=== PATIENT | female | born 1935 | race Caucasian/White ===

== ENCOUNTER → 2017-05-28 | Outpatient (CLI) | payer MEDICARE ==
--- NOTE | 2017-05-28 12:46 | US ---
EXAMINATION TYPE: US thyroid st tissue head/neck DATE OF EXAM: 05/28/2017 COMPARISON: US 2016 05/01/2016 CLINICAL HISTORY: Hypothyroidism E03.9. S/P total thyroidectomy 2008 with HX of remnant tissue per pr ior US. GLAND SIZE: Right Lobe: 1.7 x 0.8 x 0.5 cm possible remnant tissue Overall Parenchyma: homogenous Left Lobe: 1.1 x 0.5 x 0.3 cm possible remnant tissue Overall Parenchyma: homogeneous Isthmus Thickness: NA NODULES RIGHT: # of nodules measured on right: 0 LEFT: # of nodules measured on left: 0 ISTHMUS: # of nodules measured in the isthmus: 0 Bilateral neck scanned, no evidence of lymphadenopathy. IMPRESSION: 1. There may be residual thyroid tissue. Suspicious mass is not identified. Findings are stable from 2016
== END | disposition home or self-care (01) ==
LOC: RADUSWWP 11:38
PROVIDERS: ATTEND Internal Medicine
DX: E03.9 Hypothyroidism, unspecified (principal)
CPT/HCPCS: 76536

== ENCOUNTER → 2017-08-31 | Outpatient (CLI) | payer MEDICARE ==
--- NOTE | 2017-09-01 11:39 | MM ---
Reason for exam: screening (asymptomatic). Last mammogram was performed 1 year ago. History: Patient is postmenopausal and has history of other cancer at age 75. Family history of breast cancer in mother at age 60. Stereotactic core biopsy of the left breast, June 26, 2003. Benign core biopsy of the left breast. Took estrogen for 16 years beginning at age 47. Physical Findings: A clinical breast exam by your physician is recommended on an annual basis and results should be correlated with mammographic findings. MG 3D Screening Mammo W/Cad Bilateral CC and MLO view(s) were taken. Prior study comparison: August 28, 2016, bilateral MG 3d screening mammo w/cad. August 27, 2015, bilateral MG screening mammo w CAD. There are scattered fibroglandular densities. Finding: There are typically benign vascular, round, linear calcifications in both breasts. Previous mammotome biopsy in the left breast. There is no discrete abnormality. ASSESSMENT: Benign, BI-RAD 2 RECOMMENDATION: Routine screening mammogram of both breasts in 1 year.
== END | disposition home or self-care (01) ==
LOC: RADMAMWWP 09:33
PROVIDERS: ATTEND Internal Medicine
DX: Z12.31 Encounter for screening mammogram for malignant neoplasm of breast (principal)
CPT/HCPCS: 77063; G0202

== ENCOUNTER → 2018-04-14 | Outpatient (CLI) | payer MEDICARE ==
--- NOTE | 2018-04-14 13:57 | US ---
EXAMINATION TYPE: US thyroid st tissue head/neck DATE OF EXAM: 04/14/2018 COMPARISON: 05/28/2017 CLINICAL HISTORY: 82-year-old female E03.9 HYPOTHYROIDISM. Hx of thyroid cancer. Thyroidectomy in 18 11. TECHNIQUE: Multiple sonographic images of the thyroid gland are obtained. FINDINGS: GLAND SIZE: Right Lobe remnant: 1.3 x 0.5 x 0.7 cm Left Lobe remnant: 1.3 x 0.8 x 0.7 cm Isthmus Thickness: Surgically removed NODULES- No nodules or masses identified Bilateral neck scanned, no evidence of lymphadenopathy. Thyroid remnant seen in previous ultrasounds. Previous right = 1.7 x 0.8 x 0.5 cm Previous left= 1.1 x 0.5 x 0.3 cm IMPRESSION: Remnant thyroid tissue in the bilateral thyroidectomy bed. On the right, this measures smaller (1.3 c m versus 1.7 cm). On the left, this measures slightly larger (1.3 x 0.8 cm versus 1.1 x 0.5 cm). No d efinite suspicious mass. Correlate with tumor markers. Further follow-up as indicated.
== END ==
LOC: RADUSWWP 12:40
PROVIDERS: ATTEND Internal Medicine
DX: E03.9 Hypothyroidism, unspecified (principal); Z90.89 Acquired absence of other organs
CPT/HCPCS: 76536

== ENCOUNTER → 2018-08-12 | Outpatient (CLI) | payer MEDICARE ==
[2018-08-12 11:04] LABS: T4, Free (Free Thyroxine) 1.6 ng/dL (0.78-2.19)
--- NOTE | 2018-08-12 11:46 | US ---
EXAMINATION TYPE: US thyroid st tissue head/neck DATE OF EXAM: 08/12/2018 COMPARISON: Thyroid ultrasound April 14, 2018 CLINICAL HISTORY: C73 Malignant neoplasm of thyroid gland . Thyroidectomy in 2011. There appears to be remnant tissue. Right lobe remnant: 1.3 x 0.5 x 0.7cm Left lobe remnant: 1.3 x 0.8 x 0.7cm Thyroid remnant seen in previous ultrasound. Right lobe remnant: 1.3 x 0.5 x 0.7cm Left lobe remnant: 1.3 x 0.8 x 0.7cm Bilateral neck scanned, no evidence of lymphadenopathy. IMPRESSION: Residual tissue appears unchanged from prior exam. No new suspicious masses or adenopathy identified. Correlate with tumor markers.
[2018-08-12 18:17] LABS: Thyroglobulin <0.20 ng/mL (1.60-59.90)
== END | disposition home or self-care (01) ==
LOC: RADUSMAIN 09:13
PROVIDERS: ATTEND Internal Medicine
DX: C73 Malignant neoplasm of thyroid gland (principal)
CPT/HCPCS: 76536; 84432; 84439; 84443; 86800

== ENCOUNTER → 2018-09-07 | Outpatient (CLI) | payer MEDICARE ==
--- NOTE | 2018-09-07 12:22 | MM ---
Reason for exam: screening (asymptomatic). Last mammogram was performed 1 year ago. History: Patient is postmenopausal and has history of other cancer at age 75. Family history of breast cancer in mother at age 60. Stereotactic core biopsy of the left breast, June 26, 2003. Benign core biopsy of the left breast. Took estrogen for 16 years beginning at age 47. Physical Findings: A clinical breast exam by your physician is recommended on an annual basis and results should be correlated with mammographic findings. MG 3D Screening Mammo W/Cad Bilateral CC and MLO view(s) were taken. Prior study comparison: August 31, 2017, bilateral MG 3d screening mammo w/cad. August 28, 2016, bilateral MG 3d screening mammo w/cad. There are scattered fibroglandular densities. Finding: There are typically benign vascular, round, linear calcifications in both breasts. Previous mammotome biopsy in the left breast. There is no discrete abnormality. ASSESSMENT: Benign, BI-RAD 2 RECOMMENDATION: Routine screening mammogram of both breasts in 1 year.
== END | disposition home or self-care (01) ==
LOC: RADMAMWWP 07:52
PROVIDERS: ATTEND Internal Medicine
DX: Z12.31 Encounter for screening mammogram for malignant neoplasm of breast (principal)
CPT/HCPCS: 77063; 77067

== ENCOUNTER → 2019-06-10 | Outpatient (CLI) | payer MEDICARE ==
[2019-06-10 10:24] LABS: T4, Free (Free Thyroxine) 1.53 ng/dL (0.78-2.19)
--- NOTE | 2019-06-10 12:09 | US ---
EXAMINATION TYPE: US thyroid st tissue head/neck DATE OF EXAM: 06/10/2019 COMPARISON: US CLINICAL HISTORY: C73 Thyroid CA. Patient states having a hx of thyroid cancer with bilateral lobes r emoved. Remnant tissue visualized on previous US GLAND SIZE: Bilateral lobes removed. There appears to be remnant tissue in thyroid fossa. Right lobe remnant= 1.5 x 0.4 x 0.6 cm Left lobe remnant= 1.3 x 0.5 x 0.9 cm Previous measurement right lobe remnant measuring 1.3 x 0.7 x 0.5, left lobe remnant 1.3 x 0.8 0.7 cm No prominent masses or lesions visualized on today's exam. Bilateral neck scanned, no evidence of lymphadenopathy. IMPRESSION: Residual tissue in the bilateral thyroid lobe beds. Consider nuclear medicine scan to evaluate for th yroid tissue.
[2019-06-10 18:13] LABS: Thyroglobulin <0.20 ng/mL (1.60-59.90)
== END | disposition home or self-care (01) ==
LOC: RADUSWWP 09:17
PROVIDERS: ATTEND Internal Medicine
DX: C73 Malignant neoplasm of thyroid gland (principal); E03.9 Hypothyroidism, unspecified
CPT/HCPCS: 76536; 84432; 84439; 84443; 86800

== ENCOUNTER → 2019-09-13 | Outpatient (CLI) | payer MEDICARE ==
--- NOTE | 2019-09-15 08:27 | MM ---
Reason for exam: screening (asymptomatic). Last mammogram was performed 1 year ago. History: Patient is postmenopausal and has history of other cancer at age 75. Family history of breast cancer in mother at age 60. Stereotactic core biopsy of the left breast, June 26, 2003. Benign core biopsy of the left breast. Took estrogen for 16 years beginning at age 47. Physical Findings: A clinical breast exam by your physician is recommended on an annual basis and results should be correlated with mammographic findings. MG 3D Screening Mammo W/Cad Bilateral CC and MLO view(s) were taken. Prior study comparison: September 07, 2018, bilateral MG 3d screening mammo w/cad. August 31, 2017, bilateral MG 3d screening mammo w/cad. There are scattered fibroglandular densities. Previous mammotome biopsy in the left breast. Focal asymmetry upper left MLO view, likely summation. This finding is changed when compared with previous exams. ASSESSMENT: Incomplete: need additional imaging evaluation, BI-RAD 0 RECOMMENDATION: Special view mammogram of the left breast. If lesion persists on supplemental views, image directed ultrasound is recommended. [facility] will attempt to contact patient to return for supplemental views and ultrasound if indicated.
== END | disposition home or self-care (01) ==
LOC: RADMAMWWP 14:01
PROVIDERS: ATTEND Internal Medicine
DX: Z12.31 Encounter for screening mammogram for malignant neoplasm of breast (principal)
CPT/HCPCS: 77063; 77067

== ENCOUNTER → 2019-09-21 | Outpatient (CLI) | payer MEDICARE ==
--- NOTE | 2019-09-22 08:55 | MM ---
Reason for exam: additional evaluation requested from abnormal screening. Last mammogram was performed less than 1 month ago. History: Patient is postmenopausal and has history of other cancer at age 75. Family history of breast cancer in mother at age 60. Stereotactic core biopsy of the left breast, June 26, 2003. Benign core biopsy of the left breast. Took estrogen for 16 years beginning at age 47. Physical Findings: Nurse did not find any significant physical abnormalities on exam. MG 3D Work Up W/Cad LT LM and spot compression MLO view(s) were taken of the left breast. Prior study comparison: September 13, 2019, bilateral MG 3d screening mammo w/cad. September 07, 2018, bilateral MG 3d screening mammo w/cad. The breast tissue is heterogeneously dense. This may lower the sensitivity of mammography. There is no discrete abnormality on compression. These results were verbally communicated with the patient and result sheet given to the patient on 09/21/19. ASSESSMENT: Benign, BI-RAD 2 RECOMMENDATION: Return to routine screening mammogram schedule for both breasts.
== END | disposition home or self-care (01) ==
LOC: RADMAMWWP 14:42
PROVIDERS: ATTEND Internal Medicine
DX: R92.8 Other abnormal and inconclusive findings on diagnostic imaging of breast (principal)
CPT/HCPCS: 77065; G0279; 77061

== ENCOUNTER → 2020-07-24 | Outpatient (CLI) | payer MEDICARE ==
--- NOTE | 2020-07-24 13:04 | US ---
EXAMINATION TYPE: US thyroid st tissue head/neck DATE OF EXAM: 07/24/2020 COMPARISON: US 06/10/19, 08/12/18 CLINICAL HISTORY: C73 Thyroid cancer. MEASUREMENTS: GLAND SIZE: Right Lobe: 1.3 x 0.6 x 0.6 Left Lobe: 1.1 x 0.6 x 0.2 Isthmus Thickness: NODULES RIGHT: # of nodules measured on right: 0 LEFT: # of nodules measured on left: 0 ISTHMUS: # of nodules measured within isthmus: 0 Bilateral neck scanned, no evidence of lymphadenopathy. Bilateral thyroid lobes removed due to thyroid cancer. Remnant glands seen today as seen previously. IMPRESSION: Postoperative changes of thyroidectomy with remnant tissue noted. No evidence for solid or cystic mas s.
== END | disposition home or self-care (01) ==
LOC: RADUSWWP 12:33
PROVIDERS: ATTEND Internal Medicine
DX: C73 Malignant neoplasm of thyroid gland (principal); E89.0 Postprocedural hypothyroidism
CPT/HCPCS: 76536

== ENCOUNTER → 2021-04-02 | Outpatient (CLI) | payer MEDICARE ==
--- NOTE | 2021-04-03 10:42 | MM ---
Reason for exam: screening (asymptomatic). Last mammogram was performed 1 year and 6 months ago. History: Patient is postmenopausal and has history of other cancer at age 75. Family history of breast cancer in mother at age 60. Stereotactic core biopsy of the left breast, June 26, 2003. Benign core biopsy of the left breast. Took estrogen for 16 years beginning at age 47. Physical Findings: A clinical breast exam by your physician is recommended on an annual basis and results should be correlated with mammographic findings. MG 3D Screening Mammo W/Cad Bilateral CC and MLO view(s) were taken. Prior study comparison: September 21, 2019, left breast MG 3d work up w/cad LT. September 13, 2019, bilateral MG 3d screening mammo w/cad. There are scattered fibroglandular densities. There are benign appearing round linear calcifications bilaterally. Previous mammotome biopsy in the left breast. There is no discrete abnormality. ASSESSMENT: Benign, BI-RAD 2 RECOMMENDATION: Routine screening mammogram of both breasts in 1 year.
== END | disposition home or self-care (01) ==
LOC: RADMAMWWP 10:20
PROVIDERS: ATTEND Internal Medicine
DX: Z12.31 Encounter for screening mammogram for malignant neoplasm of breast (principal); Z80.3 Family history of malignant neoplasm of breast; Z78.0 Asymptomatic menopausal state
CPT/HCPCS: 77063; 77067

== ENCOUNTER → 2021-04-02 | Outpatient (CLI) | payer MEDICARE ==
--- NOTE | 2021-04-02 11:02 | US ---
EXAMINATION TYPE: US thyroid st tissue head/neck DATE OF EXAM: 04/02/2021 COMPARISON: US 07/24/2020 CLINICAL HISTORY: C73 Thyroid cancer. Post bilateral thyroidectomy with possible remnant tissue seen on prior ultrasounds. GLAND SIZE: Possible remnant tissue measured Right Lobe: 0.6 x 0.5 x 0.6 cm Overall Parenchyma: homogenous Left Lobe: 1.7 x 1.5 x 1.7 cm Overall Parenchyma: Isthmus Thickness: none seen NODULES RIGHT: # of nodules measured on right: 0 LEFT: # of nodules measured on left: 1 1. 0.7 X 0.5 x 0.5 cm, mid pole, hypoechoic nodule, which is wide as is tall, with ill-defined juliano ins, without echogenic foci. Prior size: none measured on prior US Bilateral neck scanned: no evidence of lymphadenopathy. IMPRESSION: Subcentimeter nodule warrants short-term follow-up in 1 year. 2017 ACR TI-RADS LEVEL: TR-RADS 4 - Moderately Suspicious: Follow if > 1 cm, FNA if > 1.5 cm *Highest TI-RADS level nodule reported
== END | disposition home or self-care (01) ==
LOC: RADUSWWP 10:14
PROVIDERS: ATTEND Internal Medicine
DX: E04.1 Nontoxic single thyroid nodule (principal)
CPT/HCPCS: 76536

== ENCOUNTER → 2021-05-07 | Outpatient (CLI) | payer MEDICARE ==
--- NOTE | 2021-05-07 10:40 | XR ---
EXAMINATION TYPE: XR cervical spine comp DATE OF EXAM: 05/07/2021 COMPARISON: None HISTORY: Cervicalgia TECHNIQUE: 5 view cervical spine FINDINGS: Odontoid is limited with overlying occiput. There is loss of disc height especially noted C4-5 and C5-C6. Anterior vertebral body spurring is pre sent lower cervical spine. Some posterior endplate spurring may be present C4-5 and C5-6. Posterior s cally lamellar line is intact. There is foraminal narrowing on the left at C5-6. IMPRESSION: 1. Moderate left C5-6 foraminal narrowing. 2. 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
== END | disposition home or self-care (01) ==
LOC: RADXRYALE 10:12
PROVIDERS: ATTEND Internal Medicine
DX: M50.320 Other cervical disc degeneration, mid-cervical region, unspecified level (principal); M50.323 Other cervical disc degeneration at C6-C7 level; M99.71 Connective tissue and disc stenosis of intervertebral foramina of cervical region
CPT/HCPCS: 72050

== ENCOUNTER 2021-09-02 11:02 | Emergency (ER) | payer MEDICARE ==
[2021-09-02] MEDS ORDERED: SODIUM CHLORIDE 0.9% 1,000 ML IV ONE (11:15)
[2021-09-02 11:16] VITALS: TEMP 98.6
[2021-09-02] MEDS ORDERED: ONDANSETRON 4 MG/2 ML VIAL IVP STA (11:16)
[2021-09-02] MEDS ORDERED: LORazepam 2 MG/ML INJ IV STA (11:16)
--- NOTE | 2021-09-02 11:18 | ED ---
General Adult HPI - General Chief complaint: Nausea/Vomiting/Diarrhea Stated complaint: weakness Time Seen by Provider: 09/02/21 11:05 Source: patient, EMS, RN notes reviewed, old records reviewed Mode of arrival: EMS Limitations: no limitations - History of Present Illness Initial comments: This is an 86-year-old female who presents emergency Department stating that about midnight last night she became nauseated and has been nauseated ever since. Patient states she's also had diarrhea about 4-5 episodes since then. Patient denies any abdominal pain but does complain of consistent nausea. Patient states she also felt some shortness of breath when she moved around a little. Patient also states her arms both felt weak after well and so made her scared especially because of the pandemic so she decided come in and be evaluated. Patient denies any chest pain or palpitations. Patient denies headache patient denies any numbness or focal weakness. Patient denies any swelling in the legs or calf tenderness. Patient denies any recent illness. Patient denies any recent trauma - Related Data Home Medications Medication Instructions Recorded Confirmed Aspirin EC [Ecotrin Low Dose] 81 mg PO DAILY 09/02/21 09/02/21 Calcium Carbonate [Calcium] 600 mg PO DAILY 09/02/21 09/02/21 Clobetasol Propionate [Temovate 1 applic TOPICAL BID PRN 09/02/21 09/02/21 0.05% Oint] Levothyroxine Sodium [Synthroid] 112 mcg PO DAILY 09/02/21 09/02/21 Lutein 20 mg PO DAILY@1200 09/02/21 09/02/21 Nickerson-3 Fatty Acids/Fish Oil [Fish 1 cap PO DAILY 09/02/21 09/02/21 Oil 1,000 mg Softgel] Rosuvastatin Calcium [Crestor] 5 mg PO HS 09/02/21 09/02/21 Vit C/E/Zn/Coppr/Lutein/Zeaxan 1 cap PO BID 09/02/21 09/02/21 [Preservision Areds 2 Softgel] Vitamin E 400 unit PO DAILY 09/02/21 09/02/21 Previous Rx's Medication Instructions Recorded amLODIPine [Norvasc] 5 mg PO DAILY #10 tab 09/02/21 Allergies Allergy/AdvReac Type Severity Reaction Status Date / Time celecoxib [From Celebrex] Allergy Rash/Hives Verified 09/02/21 13:01 Review of Systems ROS Statement: Those systems with pertinent positive or pertinent negative responses have been documented in the HPI. ROS Other: All systems not noted in ROS Statement are negative. Past Medical History Past Medical History: Cancer Additional Past Medical History / Comment(s): thyroid CA. History of Any Multi-Drug Resistant Organisms: None Reported Past Surgical History: Cholecystectomy, Hysterectomy, Tonsillectomy Past Psychological History: No Psychological Hx Reported Smoking Status: Never smoker Past Alcohol Use History: Occasional Past Drug Use History: None Reported General Exam - General Exam Comments Initial Comments: GENERAL: Patient is well-developed and well-nourished. Patient is nontoxic and well- hydrated and is in mild distress. ENT: Neck is soft and supple. No significant lymphadenopathy is noted. Oropharynx is clear. Moist mucous membranes. Neck has full range of motion without eliciting any pain. EYES: The sclera were anicteric and conjunctiva were pink and moist. Extraocular movements were intact and pupils were equal round and reactive to light. Eyelids were unremarkable. PULMONARY: Unlabored respirations. Good breath sounds bilaterally. No audible rales rhonchi or wheezing was noted. CARDIOVASCULAR: There is a regular rate and rhythm without any murmurs gallops or rubs. ABDOMEN: Soft and nontender with normal bowel sounds. SKIN: Skin is clear with no lesions or rashes and otherwise unremarkable. NEUROLOGIC: Patient is alert and oriented x3. Cranial nerves II through XII are grossly intact. Motor and sensory are also intact. Normal speech, volume and content. Symmetrical smile. MUSCULOSKELETAL: Normal extremities with adequate strength and full range of motion. No lower extremity swelling or edema. No calf tenderness. LYMPHATICS: No significant lymphadenopathy is noted PSYCHIATRIC: Patient is mildly anxious Limitations: no limitations Course Vital Signs 09/02/21 09/02/21 09/02/21 11:04 11:56 13:01 Temperature 98.6 F Pulse Rate 72 69 64 Respiratory 18 18 16 Rate Blood Pressure 176/103 160/96 158/80 O2 Sat by Pulse 98 96 94 L Oximetry Medical Decision Making - Medical Decision Making EKG shows normal sinus rhythm at 68 bpm SD interval 254 QRS is 90 QT intervals 4 week QTC is 433. Patient's EKG shows no ST segment elevation or depression or other some lateral T-wave changes in the precordial leads V2 through V6 in 1 and aVL. Patient was given Zofran and fluids in the emergency department she was feeling considerably better. Patient's blood pressure was mildly elevated she was given hydralazine her blood pressure came down to a reasonable range. Patient will be given Norflex go home. Patient will follow-up the primary medical care doctor. Patient also be given Zofran to go home. - Lab Data Result diagrams: 09/02/21 11:23 09/02/21 11:23 Lab Results 09/02/21 09/02/21 09/02/21 Range/Units 11:23 11:23 11:23 WBC 9.0 (3.8-10.6) k/uL RBC 5.00 (3.80-5.40) m/uL Hgb 15.3 (11.4-16.0) gm/dL Hct 45.6 (34.0-46.0) % MCV 91.3 (80.0-100.0) fL MCH 30.7 (25.0-35.0) pg MCHC 33.6 (31.0-37.0) g/dL RDW 13.1 (11.5-15.5) % Plt Count 321 (150-450) k/uL MPV 6.9 Neutrophils % 85 % Lymphocytes % 11 % Monocytes % 4 % Eosinophils % 0 % Basophils % 0 % Neutrophils # 7.6 (1.3-7.7) k/uL Lymphocytes # 1.0 (1.0-4.8) k/uL Monocytes # 0.3 (0-1.0) k/uL Eosinophils # 0.0 (0-0.7) k/uL Basophils # 0.0 (0-0.2) k/uL Sodium 136 L (137-145) mmol/L Potassium 4.3 (3.5-5.1) mmol/L Chloride 102 (98-107) mmol/L Carbon Dioxide 27 (22-30) mmol/L Anion Gap 7 mmol/L BUN 17 (7-17) mg/dL Creatinine 0.66 (0.52-1.04) mg/dL Est GFR (CKD-EPI)AfAm >90 (>60 ml/min/1.73 sqM) Est GFR (CKD-EPI)NonAf 81 (>60 ml/min/1.73 sqM) Glucose 127 H (74-99) mg/dL Calcium 9.5 (8.4-10.2) mg/dL Magnesium 2.2 (1.6-2.3) mg/dL Total Bilirubin 0.6 (0.2-1.3) mg/dL AST 21 (14-36) U/L ALT 15 (4-34) U/L Alkaline Phosphatase 69 (38-126) U/L Troponin I (0.000-0.034) ng/mL Total Protein 7.0 (6.3-8.2) g/dL Albumin 4.3 (3.5-5.0) g/dL Urine Color Light Yellow Urine Appearance Clear (Clear) Urine pH 7.0 (5.0-8.0) Ur Specific [place] 1.009 (1.001-1.035) Urine Protein Negative (Negative) Urine Glucose (UA) Negative (Negative) Urine Ketones Negative (Negative) Urine Blood Negative (Negative) Urine Nitrite Negative (Negative) Urine Bilirubin Negative (Negative) Urine Urobilinogen <2.0 (<2.0) mg/dL Ur Leukocyte Esterase Negative (Negative) Coronavirus (PCR) (Not Detectd) 09/02/21 09/02/21 Range/Units 11:29 11:33 WBC (3.8-10.6) k/uL RBC (3.80-5.40) m/uL Hgb (11.4-16.0) gm/dL Hct (34.0-46.0) % MCV (80.0-100.0) fL MCH (25.0-35.0) pg MCHC (31.0-37.0) g/dL RDW (11.5-15.5) % Plt Count (150-450) k/uL MPV Neutrophils % % Lymphocytes % % Monocytes % % Eosinophils % % Basophils % % Neutrophils # (1.3-7.7) k/uL Lymphocytes # (1.0-4.8) k/uL Monocytes # (0-1.0) k/uL Eosinophils # (0-0.7) k/uL Basophils # (0-0.2) k/uL Sodium (137-145) mmol/L Potassium (3.5-5.1) mmol/L Chloride (98-107) mmol/L Carbon Dioxide (22-30) mmol/L Anion Gap mmol/L BUN (7-17) mg/dL Creatinine (0.52-1.04) mg/dL Est GFR (CKD-EPI)AfAm (>60 ml/min/1.73 sqM) Est GFR (CKD-EPI)NonAf (>60 ml/min/1.73 sqM) Glucose (74-99) mg/dL Calcium (8.4-10.2) mg/dL Magnesium (1.6-2.3) mg/dL Total Bilirubin (0.2-1.3) mg/dL AST (14-36) U/L ALT (4-34) U/L Alkaline Phosphatase (38-126) U/L Troponin I <0.012 (0.000-0.034) ng/mL Total Protein (6.3-8.2) g/dL Albumin (3.5-5.0) g/dL Urine Color Urine Appearance (Clear) Urine pH (5.0-8.0) Ur Specific [place] (1.001-1.035) Urine Protein (Negative) Urine Glucose (UA) (Negative) Urine Ketones (Negative) Urine Blood (Negative) Urine Nitrite (Negative) Urine Bilirubin (Negative) Urine Urobilinogen (<2.0) mg/dL Ur Leukocyte Esterase (Negative) Coronavirus (PCR) Not Detected (Not Detectd) Disposition Clinical Impression: Gastroenteritis Disposition: HOME SELF-CARE Instructions (If sedation given, give patient instructions): Acute Diarrhea (ED), Acute Nausea and Vomiting (ED) Prescriptions: amLODIPine [Norvasc] 5 mg PO DAILY #10 tab Is patient prescribed a controlled substance at d/c from ED?: No Referrals: Stella Hickman MD [Primary Care Provider] - 1-2 days Time of Disposition: 13:17
[2021-09-02 11:47] LABS: Basophils % (A) 0 %; Eosinophils % (A) 0 %; HCT 45.6 % (34.0-46.0); HGB 15.3 gm/dL (11.4-16.0); Lymphocytes % (A) 11 %; MCH 30.7 pg (25.0-35.0); MCHC 33.6 g/dL (31.0-37.0); MCV 91.3 fL (80.0-100.0); Mean Platelet Volume 6.9; Monocytes # (A) 0.3 k/uL (0-1.0); Monocytes % (A) 4 %; Neutrophils # (A) 7.6 k/uL (1.3-7.7); Neutrophils % (A) 85 %; Platelet Count 321 k/uL (150-450); RDW 13.1 % (11.5-15.5)
[2021-09-02 11:49] LABS: Appearance,Urine Clear (Clear); Bilirubin,Urine Negative (Negative); Blood,Urine Negative (Negative); Color,Urine Light Yellow; Glucose,Urine (UA) Negative (Negative); Ketones,Urine Negative (Negative); Leukocyte Esterase,Urine Negative (Negative); Nitrite,Urine Negative (Negative); Protein,Urine Negative (Negative); Specific Gravity,Urine 1.009 (1.001-1.035); Urobilinogen,Urine <2.0 mg/dL (<2.0)
--- NOTE | 2021-09-02 11:59 | XR ---
EXAMINATION TYPE: XR chest 2V DATE OF EXAM: 09/02/2021 COMPARISON: 04/05/2011 HISTORY: 86-year-old female shortness of breath, difficulty breathing TECHNIQUE: AP and lateral views FINDINGS: Heart is upper limits of normal in size. Aorta and pulmonary vasculature within normal limits. Mild h yperinflation. Hazy lower lung densities appear to relate to overlying soft tissue. No thalia consolid ation or pleural effusion. IMPRESSION: Borderline heart size. No thalia infiltrate or evidence for pulmonary edema.
[2021-09-02 12:00] LABS: ALT 15 U/L (4-34); AST 21 U/L (14-36); African American GFR (CKD) >90 (>60 ml/min/1.73 sqM); Albumin 4.3 g/dL (3.5-5.0); Alkaline Phosphatase 69 U/L (38-126); Anion Gap 7 mmol/L; Blood Urea Nitrogen 17 mg/dL (7-17); Calcium 9.5 mg/dL (8.4-10.2); Carbon Dioxide 27 mmol/L (22-30); Chloride 102 mmol/L (98-107); Glucose 127 mg/dL (74-99); Magnesium 2.2 mg/dL (1.6-2.3); Non-African American GFR(CKD) 81 (>60 ml/min/1.73 sqM); Potassium 4.3 mmol/L (3.5-5.1); Sodium 136 mmol/L (137-145); Total Bilirubin 0.6 mg/dL (0.2-1.3)
[2021-09-02] MEDS ORDERED: hydrALAZINE HCL 20 MG/ML 1 ML VIAL IVP STA (12:57)
[2021-09-02 13:03] VITALS: PULSE 64; RESP 16
[2021-09-02 13:18] VITALS: BP 148/88
== END 2021-09-02 13:37 | disposition home or self-care (01) ==
LOC: EC 11:02
DX: K52.9 Noninfective gastroenteritis and colitis, unspecified (principal); Z79.82 Long term (current) use of aspirin; Z79.899 Other long term (current) drug therapy; Z85.850 Personal history of malignant neoplasm of thyroid; Z88.6 Allergy status to analgesic agent; Z90.49 Acquired absence of other specified parts of digestive tract; Z79.890 Hormone replacement therapy
CPT/HCPCS: 36415; 93005; 80053; 83735; 84484; 85025; 81003; 87635; 71046; 99285; 96374; 96375; 96361 ×2; J0360; J2405

== ENCOUNTER 2021-09-23 08:55 | Emergency (ER) | payer MEDICARE ==
[2021-09-23 09:41] VITALS: RESP 18; TEMP 98.2
[2021-09-23] MEDS ORDERED: ONDANSETRON 4 MG/2 ML VIAL IVP STA (11:28)
[2021-09-23] MEDS ORDERED: SODIUM CHLORIDE 0.9% 1,000 ML IV STA (11:28)
--- NOTE | 2021-09-23 12:09 | ED ---
General Adult HPI - General Chief complaint: Nausea/Vomiting/Diarrhea Stated complaint: vomiting Time Seen by Provider: 09/23/21 11:18 Source: patient, family, RN notes reviewed, old records reviewed Mode of arrival: wheelchair Limitations: no limitations - History of Present Illness Initial comments: 86-year-old female presenting for evaluation of persistent nausea over the past 3 weeks. She has been seen both at this institution and at an outside hospital for evaluation. She's had significant testing. She has no associated abdominal pain. Just profound nausea and vomiting. She said episodes where she has vomited diffusely for 24 hours. She states she's had normal bowel movements. No constipation. She is passing gas. No fevers. She has had workup but has not had imaging of her abdomen. - Related Data Home Medications Medication Instructions Recorded Confirmed Aspirin EC [Ecotrin Low Dose] 81 mg PO DAILY 09/02/21 09/02/21 Calcium Carbonate [Calcium] 600 mg PO DAILY 09/02/21 09/02/21 Clobetasol Propionate [Temovate 1 applic TOPICAL BID PRN 09/02/21 09/02/21 0.05% Oint] Levothyroxine Sodium [Synthroid] 112 mcg PO DAILY 09/02/21 09/02/21 Lutein 20 mg PO DAILY@1200 09/02/21 09/02/21 [place]-3 Fatty Acids/Fish Oil [Fish 1 cap PO DAILY 09/02/21 09/02/21 Oil 1,000 mg Softgel] Rosuvastatin Calcium [Crestor] 5 mg PO HS 09/02/21 09/02/21 Vit C/E/Zn/Coppr/Lutein/Zeaxan 1 cap PO BID 09/02/21 09/02/21 [Preservision Areds 2 Softgel] Vitamin E 400 unit PO DAILY 09/02/21 09/02/21 Previous Rx's Medication Instructions Recorded amLODIPine [Norvasc] 5 mg PO DAILY #10 tab 09/02/21 Allergies Allergy/AdvReac Type Severity Reaction Status Date / Time celecoxib [From Celebrex] Allergy Rash/Hives Verified 09/23/21 09:42 Review of Systems ROS Statement: Those systems with pertinent positive or pertinent negative responses have been documented in the HPI. ROS Other: All systems not noted in ROS Statement are negative. Past Medical History Past Medical History: Cancer Additional Past Medical History / Comment(s): thyroid CA. History of Any Multi-Drug Resistant Organisms: None Reported Past Surgical History: Cholecystectomy, Hysterectomy, Tonsillectomy Past Psychological History: No Psychological Hx Reported Smoking Status: Never smoker Past Alcohol Use History: Occasional Past Drug Use History: None Reported General Exam Limitations: no limitations General appearance: alert, in no apparent distress Head exam: Present: atraumatic, normocephalic Eye exam: Present: normal appearance, PERRL ENT exam: Present: mucous membranes dry Neck exam: Present: normal inspection Respiratory exam: Present: normal lung sounds bilaterally. Absent: respiratory distress, wheezes Cardiovascular Exam: Present: regular rate, normal rhythm GI/Abdominal exam: Present: soft. Absent: distended, tenderness, guarding Extremities exam: Present: normal inspection, normal capillary refill. Absent: pedal edema, calf tenderness Neurological exam: Present: alert, oriented X3, CN II-XII intact. Absent: motor sensory deficit Psychiatric exam: Present: normal affect, normal mood Skin exam: Present: warm, dry, intact. Absent: cyanosis, diaphoretic Course Vital Signs 09/23/21 09/23/21 09/23/21 09:33 12:34 13:00 Temperature 98.2 F Pulse Rate 80 73 72 Respiratory 18 18 18 Rate Blood Pressure 118/78 126/82 136/72 O2 Sat by Pulse 96 96 97 Oximetry 09/23/21 13:30 Temperature Pulse Rate 73 Respiratory 18 Rate Blood Pressure 147/82 O2 Sat by Pulse 96 Oximetry EKG Findings - EKG Comments: EKG Findings:: EKG: Normal sinus rhythm, T-wave inversion, rate 79, HI interval 156, QRS duration 92, QTC 438, no ST segment elevation, T-wave inversion is persistent from previous EKGs. Medical Decision Making - Medical Decision Making CT is negative for any acute findings, diverticulosis without other pathology. Patient well-appearing with stable vitals. Relatively normal laboratory testing. Negative troponin, normal electrolytes. Patient feeling better without vomiting. She is going to stay with her daughter for a couple days. She will take Prilosec and is given a referral to gastroenterology if symptoms persist. Return parameters discussed. - Lab Data Result diagrams: 09/23/21 11:58 09/23/21 12:16 Lab Results 09/23/21 09/23/21 09/23/21 Range/Units 11:58 12:16 12:16 WBC 3.9 (3.8-10.6) k/uL RBC 5.27 (3.80-5.40) m/uL Hgb 16.2 H (11.4-16.0) gm/dL Hct 46.4 H (34.0-46.0) % MCV 88.1 (80.0-100.0) fL MCH 30.8 (25.0-35.0) pg MCHC 35.0 (31.0-37.0) g/dL RDW 14.2 (11.5-15.5) % Plt Count 239 (150-450) k/uL MPV 6.7 Neutrophils % 84 % Lymphocytes % 8 % Monocytes % 6 % Eosinophils % 0 % Basophils % 0 % Neutrophils # 3.2 (1.3-7.7) k/uL Lymphocytes # 0.3 L (1.0-4.8) k/uL Monocytes # 0.2 (0-1.0) k/uL Eosinophils # 0.0 (0-0.7) k/uL Basophils # 0.0 (0-0.2) k/uL Hyperchromasia Slight PT 10.1 (9.0-12.0) sec INR 0.9 (<1.2) APTT 21.6 L (22.0-30.0) sec Sodium 135 L (137-145) mmol/L Potassium 4.1 (3.5-5.1) mmol/L Chloride 100 (98-107) mmol/L Carbon Dioxide 28 (22-30) mmol/L Anion Gap 7 mmol/L BUN 20 H (7-17) mg/dL Creatinine 0.90 (0.52-1.04) mg/dL Est GFR (CKD-EPI)AfAm 68 (>60 ml/min/1.73 sqM) Est GFR (CKD-EPI)NonAf 59 (>60 ml/min/1.73 sqM) Glucose 126 H (74-99) mg/dL Plasma Lactic Acid Remberto (0.7-2.0) mmol/L Calcium 9.4 (8.4-10.2) mg/dL Magnesium 2.2 (1.6-2.3) mg/dL Total Bilirubin 0.8 (0.2-1.3) mg/dL AST 65 H (14-36) U/L ALT 53 H (4-34) U/L Alkaline Phosphatase 64 (38-126) U/L Troponin I (0.000-0.034) ng/mL Total Protein 6.9 (6.3-8.2) g/dL Albumin 4.1 (3.5-5.0) g/dL 09/23/21 09/23/21 Range/Units 12:16 12:16 WBC (3.8-10.6) k/uL RBC (3.80-5.40) m/uL Hgb (11.4-16.0) gm/dL Hct (34.0-46.0) % MCV (80.0-100.0) fL MCH (25.0-35.0) pg MCHC (31.0-37.0) g/dL RDW (11.5-15.5) % Plt Count (150-450) k/uL MPV Neutrophils % % Lymphocytes % % Monocytes % % Eosinophils % % Basophils % % Neutrophils # (1.3-7.7) k/uL Lymphocytes # (1.0-4.8) k/uL Monocytes # (0-1.0) k/uL Eosinophils # (0-0.7) k/uL Basophils # (0-0.2) k/uL Hyperchromasia PT (9.0-12.0) sec INR (<1.2) APTT (22.0-30.0) sec Sodium (137-145) mmol/L Potassium (3.5-5.1) mmol/L Chloride (98-107) mmol/L Carbon Dioxide (22-30) mmol/L Anion Gap mmol/L BUN (7-17) mg/dL Creatinine (0.52-1.04) mg/dL Est GFR (CKD-EPI)AfAm (>60 ml/min/1.73 sqM) Est GFR (CKD-EPI)NonAf (>60 ml/min/1.73 sqM) Glucose (74-99) mg/dL Plasma Lactic Acid Remberto 1.3 (0.7-2.0) mmol/L Calcium (8.4-10.2) mg/dL Magnesium (1.6-2.3) mg/dL Total Bilirubin (0.2-1.3) mg/dL AST (14-36) U/L ALT (4-34) U/L Alkaline Phosphatase (38-126) U/L Troponin I <0.012 (0.000-0.034) ng/mL Total Protein (6.3-8.2) g/dL Albumin (3.5-5.0) g/dL Disposition Clinical Impression: Nausea Disposition: HOME SELF-CARE Condition: Good Instructions (If sedation given, give patient instructions): Acute Nausea and Vomiting (ED) Is patient prescribed a controlled substance at d/c from ED?: No Referrals: Karlo Travis DO [Primary Care Provider] - 1-2 days Callie Monet MD [STAFF PHYSICIAN] - 1-2 days Time of Disposition: 14:38
[2021-09-23 12:24] LABS: Basophils % (A) 0 %; Eosinophils % (A) 0 %; HCT 46.4 % (34.0-46.0); HGB 16.2 gm/dL (11.4-16.0); Hyperchromasia Slight; Lymphocytes # (A) 0.3 k/uL (1.0-4.8); Lymphocytes % (A) 8 %; MCH 30.8 pg (25.0-35.0); MCV 88.1 fL (80.0-100.0); Mean Platelet Volume 6.7; Monocytes # (A) 0.2 k/uL (0-1.0); Monocytes % (A) 6 %; Neutrophils # (A) 3.2 k/uL (1.3-7.7); Neutrophils % (A) 84 %; Platelet Count 239 k/uL (150-450); RBC 5.27 m/uL (3.80-5.40); RDW 14.2 % (11.5-15.5); WBC 3.9 k/uL (3.8-10.6)
[2021-09-23 12:40] LABS: INR 0.9 (<1.2); Prothrombin Time 10.1 sec (9.0-12.0)
[2021-09-23 12:42] LABS: Albumin 4.1 g/dL (3.5-5.0); Calcium 9.4 mg/dL (8.4-10.2); Magnesium 2.2 mg/dL (1.6-2.3); Potassium 4.1 mmol/L (3.5-5.1); Total Bilirubin 0.8 mg/dL (0.2-1.3); Total Protein 6.9 g/dL (6.3-8.2)
[2021-09-23 12:52] LABS: Partial Thromboplastin Time 21.6 sec (22.0-30.0)
--- NOTE | 2021-09-23 14:21 | CT ---
EXAMINATION TYPE: CT abdomen pelvis w con DATE OF EXAM: 09/23/2021 COMPARISON: None INDICATION: Nausea and vomiting for 3 weeks DLP: 900.2 mGycm, Automated exposure control for dose reduction was used. CONTRAST: 100 ml mL of Isovue 300. Study performed without Oral Contrast TECHNIQUE: Axial images were obtained from above the diaphragm to the pubic rami in the axial plane a t 5 mm thick sections. Reconstructed images are reviewed on the computer in the coronal plane. FINDINGS: Limited CT sections are obtained the lung bases. The lung bases are clear. CT ABDOMEN: Liver: Normal Spleen: Normal Pancreas: Normal Adrenal glands: The adrenal glands are normal. Gallbladder: Surgically absent Kidneys: No masses are evident. No hydronephrosis is present. No cysts are present. Delayed images were obtained through the kidneys, which remain unremarkable. Aorta: Vascular calcification is within the aorta. Inferior vena cava: Normal. CT PELVIS: Diverticulosis is present through the sigmoid colon. No adjacent inflammatory change to suggest acute diverticulitis. No suspicious dilated loops of bowel suggest partial or complete obstruction. This s tudy is performed without oral contrast limiting bowel evaluation. Appendix: Normal as visualized. Urinary bladder: Normal. Genitourinary structures: Uterus and ovaries are not identified Osseous structures: No suspicious lytic or sclerotic lesions. IMPRESSIONS: 1. Diverticulosis without acute diverticulitis.
[2021-09-23 14:46] LABS: Appearance,Urine Clear (Clear); Bilirubin,Urine Negative (Negative); Blood,Urine Small (Negative); Color,Urine Yellow; Glucose,Urine (UA) Negative (Negative); Ketones,Urine Negative (Negative); Leukocyte Esterase,Urine Trace (Negative); Mucus,Urine Occasional /hpf; Nitrite,Urine Negative (Negative); PH, Urine 5.5 (5.0-8.0); Protein,Urine Negative (Negative); RBC,Urine 2 /hpf (0-5); Specific Gravity,Urine 1.036 (1.001-1.035); Squamous Epithelial Cell,Urine 1 /hpf (0-4); Urobilinogen,Urine <2.0 mg/dL (<2.0); WBC,Urine 5 /hpf (0-5)
[2021-09-23 15:15] VITALS: BP 156/82; PULSE 72
== END 2021-09-23 15:18 | disposition home or self-care (01) ==
LOC: EC 08:55 → SUPCPDRO 08:55 → EC 15:18
DX: R11.2 Nausea with vomiting, unspecified (principal); Z79.890 Hormone replacement therapy; Z79.82 Long term (current) use of aspirin; Z79.899 Other long term (current) drug therapy; Z88.6 Allergy status to analgesic agent; Z85.850 Personal history of malignant neoplasm of thyroid; Z90.49 Acquired absence of other specified parts of digestive tract
CPT/HCPCS: 36415; 93005; 80053; 83605; 83735; 84484; 85025; 85610; 85730; 81001; 74177; 99284; 96360; 96361 ×2; Q9967

== ENCOUNTER → 2022-04-08 | Outpatient (CLI) | payer MEDICARE ==
[2022-04-08 19:07] LABS: T4, Free (Free Thyroxine) 1.89 ng/dL (0.800-1.800)
--- NOTE | 2022-04-08 21:59 | US ---
EXAMINATION TYPE: US thyroid st tissue head/neck DATE OF EXAM: 04/08/2022 COMPARISON: 04/02/2021 CLINICAL HISTORY: 86-year-old female C73 Thyroid cancer. Bilat. Thyroidectomy 10+ years ago Technique: Multiple sonographic images of the thyroidectomy bed. 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 IMPRESSION: No residual tissue within the thyroidectomy bed or suspicious recurrent nodule identified. The previo usly described nodularity on 04/02/2021 is no longer identified. Correlate with continued ultrasound fo llow-up and assessment of tumor markers.
== END | disposition home or self-care (01) ==
LOC: RADUSWWP 14:26
PROVIDERS: ATTEND Internal Medicine
DX: C73 Malignant neoplasm of thyroid gland (principal); E03.9 Hypothyroidism, unspecified; E55.9 Vitamin D deficiency, unspecified
CPT/HCPCS: 76536; 82306; 84432; 84439; 84443; 86800

== ENCOUNTER → 2022-10-28 | Outpatient (CLI) | payer MEDICARE ==
--- NOTE | 2022-10-28 14:41 | CT ---
EXAMINATION TYPE: CT abdomen w con DATE OF EXAM: 10/28/2022 COMPARISON: CT abdomen and pelvis September 23, 2021 HISTORY: epigastric pain CT DLP: 808 mGycm Automated exposure control for dose reduction was used. TECHNIQUE: Helical acquisition of images was performed from the lung bases through the top of iliac crest to include entire abdomen. CONTRAST: Performed with Oral Contrast and with IV Contrast, patient injected with 70cc mL of Isovue 300. FINDINGS: LUNG BASES: No significant abnormality is appreciated. LIVER/GB: Cholecystectomy clips are redemonstrated. PANCREAS: No significant abnormality is seen. SPLEEN: No significant abnormality is seen. ADRENALS: No significant abnormality is seen. KIDNEYS: No significant abnormality is seen. BOWEL: Oral contrast only reaches level of the terminal ileum making evaluation of colon slightly milligan boptimal. No suspicious small or large bowel dilatation. Few diverticula left upper pelvis partially imaged. LYMPH NODES: No significant abnormality is seen. OSSEOUS STRUCTURES: Large osseous hemangioma involving T12 vertebra redemonstrated. FREE AIR: No free air is visualized. OTHER: Mild to moderate calcified plaque of the aorta extends into branch vessels. IMPRESSION: No new or acute findings are evident. No significant change from prior CT.
== END | disposition home or self-care (01) ==
LOC: RADCTMAIN 12:59
PROVIDERS: ATTEND Family Medicine
DX: R10.13 Epigastric pain (principal)
CPT/HCPCS: 82565; 84520; 74160; 36415; Q9967 ×2

== ENCOUNTER → 2023-04-09 | Outpatient (CLI) | payer MEDICARE ==
[2023-04-10 09:48] LABS: T4, Free (Free Thyroxine) 1.55 ng/dL (0.800-1.800)
--- NOTE | 2023-04-10 19:29 | MM ---
Reason for Exam: Screening (asymptomatic). Last screening mammogram was performed 12 month(s) ago. Patient History: Menarche at age 17. First Full-Term at age 24. Left ovary removed at age 47. Right ovary removed at age 47. Hysterectomy at age 47. Postmenopausal. Other cancer, age 75. Estrogen for 16 years from age 47 until age 63. Benign Core Biopsy on the left side. 06/26/2003, Stereotactic Core Biopsy on the Left side. Mother had breast cancer, age 60. Risk Values: Lor 5 year model risk: 3.3%. NCI Lifetime model risk: 3.3%. Prior Study Comparison: 09/21/2019 Left Diagnostic Mammogram, [facility]. 04/02/2021 Bilateral Screening Mammogram, [facility]. 04/08/2022 Bilateral Screening Mammogram, [facility]. Tissue Density: There are scattered fibroglandular densities. Findings: Analyzed By CAD. Microclip left breast from prior biopsy. Benign oil cyst and vascular calcifications are present. There is no suspicious group of microcalcifications or new suspicious mass in either breast. Overall Assessment: Benign, BI-RAD 2 Management: Screening Mammogram of both breasts in 1 year. . Patient should continue monthly self-breast exams. A clinical breast exam by your physician is recommended on an annual basis. This exam should not preclude additional follow-up of suspicious palpable abnormalities. Note on Lor scores and lifetime risk: 1. A Lor score greater than 3% is considered moderate risk. If this is the case, consider specialist referral to assess eligibility for a risk reducing agent. 2. If overall lifetime risk for the development of breast cancer is 20% or higher, the patient may qualify for future screening with alternating mammogram and breast MRI. Electronically signed and approved by: Lalito Tirado M.D. Radiologist
== END | disposition home or self-care (01) ==
LOC: RADMAMWWP 13:22
PROVIDERS: ATTEND Family Medicine
DX: Z12.31 Encounter for screening mammogram for malignant neoplasm of breast (principal); C73 Malignant neoplasm of thyroid gland; E03.9 Hypothyroidism, unspecified; E55.9 Vitamin D deficiency, unspecified; Z80.3 Family history of malignant neoplasm of breast; Z78.0 Asymptomatic menopausal state; Z98.890 Other specified postprocedural states
CPT/HCPCS: 77063; 77067; 82306; 84432; 84439; 84443; 86800

== ENCOUNTER → 2024-02-26 | Outpatient (CLI) | payer MEDICARE ==
[~2024-02-26] MED LIST: REGADENOSON 0.4 MG/5 ML SYRINGE IV PRN
--- NOTE | 2024-02-26 10:26 | CA ---
Transthoracic Echo Report Name: Kiana Dhillon Age: 88 Gender: F : 1935 Exam Date: 02/26/2024 08:31 Exam Location: [place] [facility] Ht (in): 64 Wt (lb): 155 Ordering Physician: Karlo Travis DO Attending/Referring Phys: Mitzi Guido PAC Plug Wirer Jacqueline Navas RCS Procedure CPT: Indications: R06.00 DYSPNEA, UNSPECIFIED I10 ESSENTIAL (PRIMARY Cardiac Hx: Technical Quality: Fair Contrast 1: Total Dose (mL): Contrast 2: Total Dose (mL): MEASUREMENTS (Male / Female) Normal Values 2D ECHO LV Diastolic Diameter PLAX 4.9 cm 4.2 - 5.9 / 3.9 - 5.3 cm LV Systolic Diameter PLAX 3.5 cm IVS Diastolic Thickness 0.9 cm 0.6 - 1.0 / 0.6 - 0.9 cm LVPW Diastolic Thickness 0.9 cm 0.6 - 1.0 / 0.6 - 0.9 cm LV Relative Wall Thickness 0.4 RV Internal Dim ED PLAX 3.0 cm LVOT Diameter 2.0 cm LV Diastolic Volume MOD BP 97.4 cm??? 67 - 155 / 56 - 104 cm??? LV Systolic Volume MOD BP 31.1 cm??? 22 - 58 / 19 - 49 cm??? LV Ejection Fraction MOD BP 68.1 % >= 55 % LV Cardiac Index MOD BP 2323.7 cm???/min???m??? LV Diastolic Volume MOD 4C 95.4 cm??? LV Systolic Volume MOD 4C 29.2 cm??? LV Ejection Fraction MOD 4C 69.4 % LV Cardiac Index MOD 4C 2318.6 cm???/min???m??? LV Diastolic Length 4C 7.6 cm LV Systolic Length 4C 6.2 cm LV Diastolic Volume MOD 2C 98.3 cm??? LV Systolic Volume MOD 2C 32.9 cm??? LV Ejection Fraction MOD 2C 66.5 % LV Cardiac Index MOD 2C 2291.1 cm???/min???m??? LV Diastolic Length 2C 7.5 cm LV Systolic Length 2C 6.0 cm LA Volume 61.0 cm??? 18 - 58 / 22 - 52 cm??? LA Volume Index 33.9 cm???/m??? 16 - 28 cm???/m??? Ascending Aorta Diameter 4.0 cm DOPPLER AV Peak Velocity 122.0 cm/s AV Peak Gradient 6.0 mmHg AV Mean Velocity 83.4 cm/s AV Mean Gradient 3.1 mmHg AV Velocity Time Integral 31.8 cm LVOT Peak Velocity 78.1 cm/s LVOT Peak Gradient 2.4 mmHg LVOT Velocity Time Integral 19.1 cm LVOT Stroke Volume 59.6 cm??? LVOT Stroke Volume Index 34.0 ml/m??? LVOT Cardiac Index 2089.8 cm???/min???m??? AV Area Cont Eq vti 1.9 cm??? AV Area Cont Eq pk 2.0 cm??? Mitral E Point Velocity 81.0 cm/s Mitral A Point Velocity 104.2 cm/s Mitral E to A Ratio 0.8 MV Deceleration Time 183.7 ms MV E' Velocity 3.1 cm/s Mitral E to MV E' Ratio 26.5 PV Peak Velocity 58.5 cm/s PV Peak Gradient 1.4 mmHg FINDINGS Left Ventricle Left ventricular ejection fraction is estimated at 60-65 %. Left ventricular wall thickness normal. Left ventricular cavity size normal. No obvious regional wall motion abnormalities. Right Ventricle Normal right ventricular size and function. Unable to estimate right ventricular systolic pressure. Right Atrium Normal right atrial size. Left Atrium Mildly increased left atrial volume. Mitral Valve Structurally normal mitral valve. No evidence for mitral valve prolapse. No mitral stenosis. Trace mitral regurgitation. Aortic Valve Trileaflet aortic valve. No aortic valve stenosis or regurgitation. Tricuspid Valve Structurally normal tricuspid valve. No tricuspid stenosis. Trace tricuspid regurgitation. Pulmonic Valve Structurally normal pulmonic valve. No pulmonic stenosis. Trace pulmonic regurgitation. Pericardium No pericardial effusion. Aorta Aortic annulus normal. Ascending aorta mildly dilated. CONCLUSIONS Left ventricular ejection fraction is estimated at 60-65 %. No obvious regional wall motion abnormalities. Normal right ventricular size and function. No significant valvular dysfunction Previewed by: Dr Rosalino Carty (Electronically Signed) Final Date: 26 February 2024 10:25
--- NOTE | 2024-02-26 11:29 | CA ---
Lexiscan Nuclear Stress Test Report Name: Kiana Dhillon Exam Date: 02/26/2024 09:47 Exam Location: [place] [facility] Ht (in): 64 Wt (lb): 155 BSA: 1.76 Ordering Phys: Karlo Travis DO Referring Phys: Mitzi Guido Technologist: DEYSI WADSWORTH Age: 88 Gender: F : 1935 Procedure CPT: Indications: R06.00 DYSPNEA, UNSPECIFIED I10 ESSENTIAL (PRIMARY ICD-10 Codes: Patient History: DENIS, PALPITATIONS, HYPERCHOLESTEROLEMIA Medications: Meds past 24 hrs: Pretest Chest Pain: STRESS TEST Lexiscan Protocol Exercise Duration (min:sec): 01:[address] Depressions (mm): Angina Score: Johnson Score: Resting HR (bpm): 60 Peak HR (bpm): 88 Resting BP (mmHg): 168 / 96 Peak BP (mmHg): 168 / 96 MPHR: 134 Target HR: 114 % MPHR: 66 METS: 1.0 Total Dose: Peak Dose: Atropine: Double Product: 37569 BP Response: Stress Termination: INFUSION COMPLELTE Stress Symptoms: DENIS Stress Summary: ECG ANALYSIS Resting ECG: Stress ECG: CONCLUSIONS RESTING EKG: Sinus bradycardia, normal ECG, heart rate 58 BPM Patient recieved IV infusion of Lexiscan 0.4mg and at peak infusion STRESS EKG showed: [No significant ST-T wave changes diagnostic for ischemia by ST segment analysis] ARRYTHMIAS: [No ectopic rhythms or sustained arrythmias] CONCLUSION: 1. Normal hemodynamic and clinical response to Lexiscan infusion. 2. Non-ischemic EKG response to lexiscan infusion Please refer to the nuclear imaging portion of this stress test for complete interpretation of the study. Dr Rosalino Carty (Electronically Signed) Final Date: 26 February 2024 11:28
== END | disposition home or self-care (01) ==
LOC: RADNMMAIN 07:44
PROVIDERS: ATTEND Family Medicine
DX: R06.00 Dyspnea, unspecified (principal); I10 Essential (primary) hypertension; R11.0 Nausea
CPT/HCPCS: 93017; 93306; 78452; A9500; J2785

== ENCOUNTER → 2024-04-28 | Outpatient (CLI) | payer MEDICARE ==
--- NOTE | 2024-04-29 13:02 | MM ---
Reason for Exam: Screening (asymptomatic). Last screening mammogram was performed 12 month(s) ago. Patient History: Menarche at age 17. First Full-Term at age 24. Left ovary removed at age 47. Right ovary removed at age 47. Hysterectomy at age 47. Postmenopausal. Other cancer, age 75. Estrogen for 16 years from age 47 until age 63. Benign Core Biopsy on the left side. 06/26/2003, Stereotactic Core Biopsy on the Left side. Mother had breast cancer, age 60. Prior Study Comparison: 04/02/2021 Bilateral Screening Mammogram, [facility]. 04/08/2022 Bilateral Screening Mammogram, [facility]. 04/09/2023 Bilateral MG 3D screening mammo w/cad, [facility]. Tissue Density: There are scattered areas of fibroglandular density. Findings: Analyzed By CAD. The pattern is symmetrical. Nonvascular and spherical calcifications are present bilaterally. No significant interval changes are evident. The core marker is within the left breast. No suspicious groups of microcalcifications, spiculated or lobular masses, architectural distortion or other secondary signs of malignancy are mammographically apparent. Overall Assessment: Benign, BI-RAD 2 Management: Screening Mammogram of both breasts in 1 year. A negative mammogram report should not preclude additional follow up of suspicious palpable abnormalities. Patient should continue monthly self breast exam. A clinical breast exam by your physician is recommended on an annual basis and results should be correlated with mammographic findings. Note on Lor scores and lifetime risk: 1. A Lor score greater than 3% is considered moderate risk. If this is the case, consider specialist referral to assess eligibility for a risk reducing agent. 2. If overall lifetime risk for the development of breast cancer is 20% or higher, the patient may qualify for future screening with alternating mammogram and breast MRI. Electronically signed and approved by: Alek Mattson D.O. Radiologis
== END | disposition home or self-care (01) ==
LOC: RADMAMWWP 10:45
PROVIDERS: ATTEND Family Medicine
DX: Z12.31 Encounter for screening mammogram for malignant neoplasm of breast (principal); Z80.3 Family history of malignant neoplasm of breast; Z78.0 Asymptomatic menopausal state
CPT/HCPCS: 77063; 77067

== ENCOUNTER 2024-05-02 08:18 | Day surgery (SDC) | payer MEDICARE ==
[2024-05-02] MEDS: SODIUM CHLORIDE 0.9% 1,000 ML IV ONE (07:35)
[~2024-05-02 08:18] MED LIST changes: +ALPRAZolam 0.25 MG TAB PO PRN; +ALPRAZolam 0.5 MG TAB PO PRN; +ASPIRIN 325 MG TAB PO STA; +ATORVASTATIN 80 MG TAB PO STA; +HEPARIN SODIUM,PORCINE (1 ML) 2,500 UNIT in SODIUM CHLORIDE 0.9% 250 ML IRRIGATION PRN; +HEPARIN SODIUM,PORCINE 10,000 UNIT in SODIUM CHLORIDE 0.9% 1,000 ML IRRIGATION PRN; +NITROGLYCERIN SL TABS 0.4 MG TAB SUBLINGUAL PRN; -REGADENOSON 0.4 MG/5 ML SYRINGE IV PRN; +SODIUM CHLORIDE 0.9% 1,000 ML in EMPTY BAG 1 BAG IV SCH
[2024-05-02 08:32] VITALS: RESP 16; TEMP 98
[2024-05-02] MEDS: MIDAZOLAM 2 MG/2 ML VIAL IVP ONE (09:44)
[2024-05-02] MEDS: fentaNYL (PF) 50 MCG/1 ML VIAL IVP ONE (09:44)
[2024-05-02] MEDS: LIDOCAINE 1% INJ 10MG/ML (20 ML MDV) SQ ONE (09:45)
[2024-05-02] MEDS: VERAPAMIL SYRINGE (5 MG/10 ML) INTRAARTER ONE (09:49)
[2024-05-02] MEDS: HEPARIN SODIUM 1,000 UN/ML (10ML VL) IVP ONE (09:50)
[2024-05-02] MEDS: IOPAMIDOL-370 100ML BTL INJ ONE (10:09)
[2024-05-02] MEDS ORDERED: RX INFO: IV CONTRAST WAS GIVEN 1 EACH MISC MISCELLANE PRN (10:11)
[2024-05-02] MEDS ORDERED: SODIUM CHLORIDE 0.9% 1,000 ML IV SCH (10:15)
--- NOTE | 2024-05-02 10:53 | CC ---
CARDIAC CATHETERIZATION REPORT INDICATION: Chest pain, shortness of breath with abnormal stress test showing ischemia in LAD distribution. PROCEDURE NOTE: After obtaining informed consent, left heart catheterization and coronary angiogram were performed via the right radial artery using standard Veronica catheters. The patient tolerated the procedure well without any obvious immediate complications. The patient was given heparin and verapamil per protocol. Total sedation time was 18 minutes. Right radial artery access was obtained using Seldinger technique. A 6-Spanish sheath was placed. Catheters and wires were floated into the ascending aorta under fluoroscopic guidance. FINDINGS: 1. Hemodynamics: Central aortic pressure is 160/70 mm. 2. Left ventriculogram: Left ventriculogram is not performed. 3. Angiographic data: a.Right coronary artery: Right coronary artery is a large dominant vessel that shows a 70% stenosis involving the mid RCA. Left main coronary artery is a large vessel, appears calcified but is free of stenosis. Divides into left anterior descending coronary artery and circumflex coronary artery. Circumflex coronary artery shows mild nonobstructive disease as does the LAD, gives off a fair caliber diagonal branch that shows 80% to 90% stenosis. CONCLUSIONS: Significant stenosis involving mid RCA. No significant obstructive disease involving LAD, which is where the ischemia was. Significant stenosis involving a small caliber diagonal branch. PLAN: I will review angiographic data with Dr. Beth, the on-call merchandiser seasonal and decide on further course of action. MMODL / IJN: [id number] /
[2024-05-02 13:52] VITALS: BP 145/74; PULSE 62
== END 2024-05-02 13:52 | disposition home or self-care (01) ==
LOC: CATHCVL 08:18
PROVIDERS: ATTEND Internal Medicine Cardiovascular Disease
DX: R94.39 Abnormal result of other cardiovascular function study (principal); E78.5 Hyperlipidemia, unspecified; Z87.891 Personal history of nicotine dependence; Z79.899 Other long term (current) drug therapy; Z79.82 Long term (current) use of aspirin
CPT/HCPCS: 93454; C1769; C1894; J2250; J2001; J1644; Q9967; J3010

== ENCOUNTER → 2024-09-07 | Outpatient (CLI) | payer MEDICARE ==
--- NOTE | 2024-09-08 08:49 | XR ---
EXAMINATION TYPE: XR lumbosacral spine min 4V DATE OF EXAM: 09/07/2024 CLINICAL HISTORY: pain COMPARISON: NONE TECHNIQUE: Frontal, lateral, and oblique images of the lumbar spine are obtained. FINDINGS: There are 5 lumbar type vertebral bodies identified. The lumbar spine shows satisfactory alignment without evidence of acute fracture or dislocation. Vertebral body heights are within normal limits. Vacuum disc L5-S1. Moderate facet joint arthropathy. Mild multilevel degenerative disc space narrowing. The overlying soft tissue appears unremarkable. IMPRESSION: No acute fracture or dislocation is seen in the lumbar spine.ICD 10 NO FRACTURE, INITIAL EVALUATION [facility], , 09/08/2024 8:47 AM
== END | disposition home or self-care (01) ==
LOC: RADXRYALE 15:57
PROVIDERS: ATTEND Physician Assistant Medical
DX: M54.40 Lumbago with sciatica, unspecified side (principal)
CPT/HCPCS: 72110

== ENCOUNTER 2024-10-02 20:30 | Emergency (ER) | payer MEDICARE ==
--- NOTE | 2024-10-02 20:37 | ED ---
Nausea/Vomiting/Diarrhea HPI - General Stated complaint: Nausea, Vomiting, Hypertension, Headache Time Seen by Provider: 10/02/24 20:36 Source: RN notes reviewed, old records reviewed Limitations: no limitations - History of Present Illness Initial comments: This is a 89-year-old female for anxiety, patient admits to anxiety elevated blood pressure elevated heart rate does not feel well feels uneasy mild headache canal and also concern for elevated blood pressure. MD complaint: nausea, vomiting -: hour(s) Radiation: none Severity: severe Severity scale (1-10): 9 Consistency: constant Improves with: none - Related Data Home Medications Medication Instructions Recorded Confirmed Aspirin EC [Ecotrin Low Dose] 81 mg PO DAILY 09/02/21 05/02/24 Clobetasol Propionate [Temovate 1 applic TOPICAL BID PRN 09/02/21 04/29/24 0.05% Oint] Levothyroxine Sodium [Synthroid] 112 mcg PO DAILY 09/02/21 05/02/24 Lutein 20 mg PO DAILY@1200 09/02/21 04/29/24 [place]-3 Fatty Acids/Fish Oil [Fish 1 cap PO DAILY 09/02/21 04/29/24 Oil 1,000 mg Softgel] Rosuvastatin Calcium [Crestor] 5 mg PO DAILY 09/02/21 04/29/24 Vit C/E/Zn/Coppr/Lutein/Zeaxan 2 cap PO BID 09/02/21 04/29/24 [Preservision Areds 2 Softgel] Vitamin E 400 unit PO DAILY 09/02/21 04/29/24 Omeprazole 20 mg PO DIRECTED PRN 04/15/24 04/29/24 Unk Ca+,Mg+,Zinc, Vit D 1 tab PO DAILY 04/15/24 04/29/24 Nitroglycerin Sl Tabs [Nitrostat] 0.4 mg SUBLINGUAL Q5M PRN 04/18/24 05/02/24 Previous Rx's Medication Instructions Recorded Isosorbide Mononitrate ER [Imdur] 30 mg PO DAILY #90 tab 05/02/24 Allergies Allergy/AdvReac Type Severity Reaction Status Date / Time celecoxib [From Celebrex] Allergy Rash/Hives Verified 10/02/24 20:44 Review of Systems ROS Statement: Those systems with pertinent positive or pertinent negative responses have been documented in the HPI. ROS Other: All systems not noted in ROS Statement are negative. Past Medical History Past Medical History: Cancer Additional Past Medical History / Comment(s): thyroid CA. History of Any Multi-Drug Resistant Organisms: None Reported Past Surgical History: Cholecystectomy, Hysterectomy, Tonsillectomy Additional Past Surgical History / Comment(s): EGD, rectocele and cystocele, thyroidectomy, Past Anesthesia/Blood Transfusion Reactions: No Reported Reaction Smoking Status: Never smoker - Past Family History Mother Family Medical History: Cancer Additional Family Medical History / Comment(s): breast General Exam General appearance: alert, in no apparent distress, anxious Head exam: Present: atraumatic, normocephalic, normal inspection Eye exam: Present: normal appearance, PERRL, EOMI. Absent: scleral icterus, conjunctival injection, periorbital swelling ENT exam: Present: normal exam, mucous membranes moist Neck exam: Present: normal inspection. Absent: tenderness, meningismus, lym phadenopathy Respiratory exam: Present: normal lung sounds bilaterally. Absent: respiratory distress, wheezes, rales, rhonchi, stridor Cardiovascular Exam: Present: regular rate, normal rhythm, normal heart sounds. Absent: systolic murmur, diastolic murmur, rubs, gallop, clicks GI/Abdominal exam: Present: soft, normal bowel sounds. Absent: distended, tenderness, guarding, rebound, rigid Extremities exam: Present: normal inspection, full ROM, normal capillary refill. Absent: tenderness, pedal edema, joint swelling, calf tenderness Back exam: Present: normal inspection Neurological exam: Present: alert, oriented X3, CN II-XII intact Psychiatric exam: Present: normal affect, normal mood Skin exam: Present: warm, dry, intact, normal color. Absent: rash Course Vital Signs 10/02/24 10/02/24 20:33 21:23 Temperature 97.6 F Pulse Rate 67 66 Respiratory 18 12 Rate Blood Pressure 196/110 157/85 O2 Sat by Pulse 94 L 94 L Oximetry - Reevaluation(s) Reevaluation #1: 10/02/24 20:37 Medical records reviewed Reevaluation #2: 10/02/24 21:49 Patient symptoms improved here in the ER Reevaluation #3: 10/02/24 21:49 Patient informed of results questions answered Reevaluation #4: Was pt. sent in by a medical professional or institution (RACHID Guerrero, RADIO BOARD OPERATOR ANNOUNCER, urgent care, hospital, or alf...) When possible be specific @ -no Did you speak to anyone other than the patient for history (EMS, parent, family, police, friend...)? What history was obtained from this source @ -no Did you review nursing and triage notes (agree or disagree)? Why? @ -agree Are old charts reviewed (outside hosp., previous admission, EMS record, old EKG, old radiological studies, urgent care reports/EKG's, alf records)? Report findings @ -yes Differential Diagnosis (chest pain, altered mental status, abdominal pain women, abdominal pain men, vaginal bleeding, weakness, fever, dyspnea, syncope, headache, dizziness, GI bleed, back pain, seizure, CVA, palpatations, mental health, musculoskeletal)? @ -prior EKG interpreted by me (3pts min.). @ -yes X-rays interpreted by me (1pt min.). @ -yes negative for acute disease CT interpreted by me (1pt min.). @ -no U/S interpreted by me (1pt. min.). @ -no What testing was considered but not performed or refused? (CT, X-rays, U/S, labs)? Why? @ -none What meds were considered but not given or refused? Why? @ -none Did you discuss the management of the patient with other professionals (professionals i.e. RACHID Guerrero, RADIO BOARD OPERATOR ANNOUNCER, lab, RT, psych nurse, social media specialist, drawer in dobby loom, teacher, protocol officer, classification case manager)? Give summary @ -no Was smoking cessation discussed for >3mins.? @ -no Was critical care preformed (if so, how long)? @ -no Were there social determinants of health that impacted care today? How? (Homelessness, low income, unemployed, alcoholism, drug addiction, transportation, low edu. Level, literacy, decrease access to med. care, care home, rehab)? @ -none Was there de-escalation of care discussed even if they declined (Discuss DNR or withdrawal of care, Hospice)? DNR status @ -no What co-morbidities impacted this encounter? (DM, HTN, Smoking, COPD, CAD, Cancer, CVA, ARF, Chemo, Hep., AIDS, mental health diagnosis, sleep apnea, morbid obesity)? @ -none Was patient admitted / discharged? Hospital course, mention meds given and route, prescriptions, significant lab abnormalities, going to OR and other pertinent info. @ - Undiagnosed new problem with uncertain prognosis? @ -no Drug Therapy requiring intensive monitoring for toxicity (Heparin, Nitro, Insulin, Cardizem)? @ -no Were any procedures done? @ -no Diagnosis/symptom? @ - Acute, or Chronic, or Acute on Chronic? @ -Acute Uncomplicated (without systemic symptoms) or Complicated (systemic symptoms)? @ -Complicated Side effects of treatment? @ -no Exacerbation, Progression, or Severe Exacerbation? @ -exacerbation Poses a threat to life or bodily function? How? (Chest pain, [place], [place], pneumonia, PE, COPD, DKA, ARF, appy, cholecystitis, CVA, Diverticulitis, Homicidal, S uicidal, threat to staff... and all critical care pts) @ -yes Medical Decision Making - Medical Decision Making 89 female with hypertensive, headache, anxiety attack. Patient feels well throughout ER stay blood pressure improved symptoms controlled patient able to rest comfortably and can be discharged home - Lab Data Result diagrams: 10/02/24 20:54 10/02/24 20:54 Lab Results 10/02/24 10/02/24 10/02/24 Range/Units 20:54 20:54 20:54 WBC 6.1 (3.8-10.6) k/uL RBC 4.59 (3.80-5.40) m/uL Hgb 14.0 (11.4-16.0) gm/dL Hct 42.0 (34.0-46.0) % MCV 91.5 (80.0-100.0) fL MCH 30.4 (25.0-35.0) pg MCHC 33.3 (31.0-37.0) g/dL RDW 14.0 (11.5-15.5) % Plt Count 236 (150-450) k/uL MPV 7.2 Neutrophils % 79 % Lymphocytes % 13 % Monocytes % 5 % Eosinophils % 1 % Basophils % 0 % Neutrophils # 4.8 (1.3-7.7) k/uL Lymphocytes # 0.8 L (1.0-4.8) k/uL Monocytes # 0.3 (0-1.0) k/uL Eosinophils # 0.1 (0-0.7) k/uL Basophils # 0.0 (0-0.2) k/uL PT 10.0 (10.0-12.5) sec INR 0.9 (<1.2) APTT 21.8 L (22.0-30.0) sec Sodium 134 L (137-145) mmol/L Potassium 3.6 (3.5-5.1) mmol/L Chloride 106 (98-107) mmol/L Carbon Dioxide 25 (22-30) mmol/L Anion Gap 3 mmol/L BUN 15 (7-17) mg/dL Creatinine 0.61 (0.52-1.04) mg/dL Est GFR (CKD-EPI)AfAm >90 (>60 ml/min/1.73 sqM) Est GFR (CKD-EPI)NonAf 82 (>60 ml/min/1.73 sqM) Glucose 113 H (74-99) mg/dL Plasma Lactic Acid Remberto (0.7-2.0) mmol/L Calcium 8.5 (8.4-10.2) mg/dL Phosphorus 3.7 (2.5-4.5) mg/dL Magnesium 2.1 (1.6-2.3) mg/dL Total Bilirubin 0.8 (0.2-1.3) mg/dL AST 24 (14-36) U/L ALT 21 (4-34) U/L Alkaline Phosphatase 59 (38-126) U/L Troponin I (0.000-0.034) ng/mL NT-Pro-B Natriuret Pep 216 pg/mL Total Protein 6.3 (6.3-8.2) g/dL Albumin 4.0 (3.5-5.0) g/dL Urine Color Urine Appearance (Clear) Urine pH (5.0-8.0) Ur Specific [place] (1.001-1.035) Urine Protein (Negative) Urine Glucose (UA) (Negative) Urine Ketones (Negative) Urine Blood (Negative) Urine Nitrite (Negative) Urine Bilirubin (Negative) Urine Urobilinogen (<2.0) mg/dL Ur Leukocyte Esterase (Negative) 10/02/24 10/02/24 10/02/24 Range/Units 20:54 20:54 20:55 WBC (3.8-10.6) k/uL RBC (3.80-5.40) m/uL Hgb (11.4-16.0) gm/dL Hct (34.0-46.0) % MCV (80.0-100.0) fL MCH (25.0-35.0) pg MCHC (31.0-37.0) g/dL RDW (11.5-15.5) % Plt Count (150-450) k/uL MPV Neutrophils % % Lymphocytes % % Monocytes % % Eosinophils % % Basophils % % Neutrophils # (1.3-7.7) k/uL Lymphocytes # (1.0-4.8) k/uL Monocytes # (0-1.0) k/uL Eosinophils # (0-0.7) k/uL Basophils # (0-0.2) k/uL PT (10.0-12.5) sec INR (<1.2) APTT (22.0-30.0) sec Sodium (137-145) mmol/L Potassium (3.5-5.1) mmol/L Chloride (98-107) mmol/L Carbon Dioxide (22-30) mmol/L Anion Gap mmol/L BUN (7-17) mg/dL Creatinine (0.52-1.04) mg/dL Est GFR (CKD-EPI)AfAm (>60 ml/min/1.73 sqM) Est GFR (CKD-EPI)NonAf (>60 ml/min/1.73 sqM) Glucose (74-99) mg/dL Plasma Lactic Acid R[place] 0.9 (0.7-2.0) mmol/L Calcium (8.4-10.2) mg/dL Phosphorus (2.5-4.5) mg/dL Magnesium (1.6-2.3) mg/dL Total Bilirubin (0.2-1.3) mg/dL AST (14-36) U/L ALT (4-34) U/L Alkaline Phosphatase (38-126) U/L Troponin I <0.012 (0.000-0.034) ng/mL NT-Pro-B Natriuret Pep pg/mL Total Protein (6.3-8.2) g/dL Albumin (3.5-5.0) g/dL Urine Color Colorless Urine Appearance Clear (Clear) Urine pH 7.0 (5.0-8.0) Ur Specific [place] 1.008 (1.001-1.035) Urine Protein Negative (Negative) Urine Glucose (UA) Negative (Negative) Urine Ketones Negative (Negative) Urine Blood Negative (Negative) Urine Nitrite Negative (Negative) Urine Bilirubin Negative (Negative) Urine Urobilinogen <2.0 (<2.0) mg/dL Ur Leukocyte Esterase Negative (Negative) - EKG Data -: EKG Interpreted by Me (EKG is sinus 63 IN 175 QRS 101 QTc 456) - Radiology Data Radiology results: report reviewed (CT brain is negative for acute disease), image reviewed Disposition Clinical Impression: Headache, Anxiety, Hypertension Disposition: HOME SELF-CARE Condition: Fair Instructions (If sedation given, give patient instructions): Hypertension (ED) Is patient prescribed a controlled substance at d/c from ED?: No Referrals: Yola Mcallister, PAC [REFERRING] - 1-2 days Time of Disposition: 22:00
[2024-10-02 20:44] VITALS: TEMP 97.6
[2024-10-02] MEDS: SODIUM CHLORIDE 0.9% 1,000 ML IV STA (21:12)
[2024-10-02 21:14] LABS: Appearance,Urine Clear (Clear); Bilirubin,Urine Negative (Negative); Blood,Urine Negative (Negative); Color,Urine Colorless; Glucose,Urine (UA) Negative (Negative); Ketones,Urine Negative (Negative); Leukocyte Esterase,Urine Negative (Negative); Nitrite,Urine Negative (Negative); Protein,Urine Negative (Negative); Specific Gravity,Urine 1.008 (1.001-1.035); Urobilinogen,Urine <2.0 mg/dL (<2.0)
[2024-10-02] MEDS: PROCHLORPERAZINE INJ 10 MG/2 ML VIAL IVP STA (21:14)
[2024-10-02] MEDS: HYDROmorphone 0.5 MG/0.5 ML SYRINGE IVP STA (21:16)
--- NOTE | 2024-10-02 21:18 | CT ---
EXAMINATION TYPE: CT brain wo con DATE OF EXAM: 10/02/2024 9:08 PM COMPARISON: None. CLINICAL INDICATION: Female, 89 years old with history of mariano, Headache NV HTN TECHNIQUE: Brain: Axial CT images of the brain were obtained with coronal and sagittal reformats created and rev iewed. Contrast used: None. Oral contrast used: None. CT DLP: 1139.4 mGycm, Automated exposure control for dose reduction was used. FINDINGS: Brain: Extra-axial spaces: No abnormal extra-axial fluid collections. Ventricular system: Dilatation in proportion to cerebral atrophy. Cerebral parenchyma: Cerebral atrophy. No acute intraparenchymal hemorrhage or mass effect. The neeraj radha of the mathew-white junctions are well differentiated. Scattered hypoattenuating areas are seen w ithin the white matter. Cerebellum: Unremarkable. Mass effect: No evidence of midline shift. Intracranial vasculature: Atherosclerotic calcifications of the intracranial vessels. Soft tissues: Normal. Calvarium/osseous structures: No depressed skull fracture. Paranasal sinuses and mastoid air cells: Mild scattered paranasal sinus disease. Visualized orbits: Bilateral aphakia IMPRESSION: 1. No acute intracranial process. 2. Nonspecific white matter changes, likely secondary to chronic small vessel ischemic disease. [facility], , 10/02/2024 9:15 PM
[2024-10-02 21:19] LABS: Basophils % (A) 0 %; Eosinophils # (A) 0.1 k/uL (0-0.7); Eosinophils % (A) 1 %; Lymphocytes # (A) 0.8 k/uL (1.0-4.8); Lymphocytes % (A) 13 %; MCH 30.4 pg (25.0-35.0); MCHC 33.3 g/dL (31.0-37.0); MCV 91.5 fL (80.0-100.0); Mean Platelet Volume 7.2; Monocytes # (A) 0.3 k/uL (0-1.0); Monocytes % (A) 5 %; Neutrophils # (A) 4.8 k/uL (1.3-7.7); Neutrophils % (A) 79 %; Platelet Count 236 k/uL (150-450); RBC 4.59 m/uL (3.80-5.40); WBC 6.1 k/uL (3.8-10.6)
[2024-10-02] MEDS: LORazepam 2 MG/ML INJ IV STA (21:19)
[2024-10-02 21:29] LABS: ALT 21 U/L (4-34); AST 24 U/L (14-36); African American GFR (CKD) >90 (>60 ml/min/1.73 sqM); Alkaline Phosphatase 59 U/L (38-126); Anion Gap 3 mmol/L; Blood Urea Nitrogen 15 mg/dL (7-17); Calcium 8.5 mg/dL (8.4-10.2); Carbon Dioxide 25 mmol/L (22-30); Chloride 106 mmol/L (98-107); Glucose 113 mg/dL (74-99); Magnesium 2.1 mg/dL (1.6-2.3); Non-African American GFR(CKD) 82 (>60 ml/min/1.73 sqM); Phosphorus 3.7 mg/dL (2.5-4.5); Potassium 3.6 mmol/L (3.5-5.1); Sodium 134 mmol/L (137-145); Total Bilirubin 0.8 mg/dL (0.2-1.3); Total Protein 6.3 g/dL (6.3-8.2)
[2024-10-02 21:37] LABS: NT-Pro-B-Type Natriuretic Pept 216 pg/mL
[2024-10-02 21:40] LABS: INR 0.9 (<1.2)
[2024-10-02 21:44] LABS: Partial Thromboplastin Time 21.8 sec (22.0-30.0)
[2024-10-02 22:00] VITALS: BP 129/76; PULSE 65; RESP 16
[2024-10-02] MEDS: LABETALOL 5 MG/ML VIAL MDV IVP STA (22:02)
== END 2024-10-02 21:09 | disposition home or self-care (01) ==
LOC: EC 20:30
DX: R51.9 Headache, unspecified (principal); F41.9 Anxiety disorder, unspecified; I10 Essential (primary) hypertension; Z88.6 Allergy status to analgesic agent
CPT/HCPCS: 36415; 93005; 83880; 80053; 83605; 83735; 84100; 84484; 85025; 85610; 85730; 81003; 70450; 99285; 96361; 96374; 96375 ×2; J2060; J0780; J1171; 99284

== ENCOUNTER → 2025-02-27 | Outpatient (CLI) | payer MEDICARE ==
--- NOTE | 2025-02-27 14:47 | XR ---
EXAMINATION TYPE: XR chest 2V DATE OF EXAM: 02/27/2025 2:37 PM COMPARISON: 09/02/2021 CLINICAL INDICATION: Female, 89 years old with history of [id number] COUGH; [facility] TECHNIQUE: XR chest 2V Frontal and lateral views of the chest. FINDINGS: Lungs/Pleura: There is flattening of the diaphragm with increased lucency of the lungs. No evidence o f pneumothorax, pleural effusion or focal consolidation. Pulmonary vascularity: Unremarkable. Heart/mediastinum: Cardiomediastinal silhouette is unremarkable. Musculoskeletal: No acute osseous pathology. Other findings: None IMPRESSION: 1. No acute cardiopulmonary disease process. 2. COPD changes. [facility], , 02/27/2025 2:44 PM
== END | disposition home or self-care (01) ==
LOC: RADXRYALE 14:18
PROVIDERS: ATTEND Physician Assistant Medical
DX: J44.9 Chronic obstructive pulmonary disease, unspecified (principal)
CPT/HCPCS: 71046